=== PATIENT | female | born 1955 | race Caucasian/White ===

== ENCOUNTER 2019-06-10 18:27 | Emergency (ER) | payer OTHER ==
[~2019-06-10] VITALS: Ht 160 cm; Wt 100.0 kg
[2019-06-10] MEDS ORDERED: ASPI81 PO (18:32)
[2019-06-10] MEDS ORDERED: ATEN25TA PO (18:32)
[2019-06-10] MEDS ORDERED: HTN MED PO (18:32)
[2019-06-10] MEDS ORDERED: DYRE50 PO (18:53)
[2019-06-10] MEDS ORDERED: ACETAMINOPHEN 500 MG TABLET PO ONE (19:30)
[2019-06-10] MEDS ORDERED: PERTUSS(ACELL),DIPH,TET VAC/PF 0.5 ML VIAL IM ONE (19:30)
[2019-06-10 19:40] VITALS: BP 124/80
== END 2019-06-10 20:16 | disposition home or self-care (01) ==
LOC: EMS 18:28
DX: S61.421A Laceration with foreign body of right hand, initial encounter (principal); S61.216A Laceration without foreign body of right little finger without damage to nail, initial encounter; I10 Essential (primary) hypertension; Z90.710 Acquired absence of both cervix and uterus; Z98.890 Other specified postprocedural states; Z79.82 Long term (current) use of aspirin; Z79.899 Other long term (current) drug therapy; W25.XXXA Contact with sharp glass, initial encounter; Y93.89 Activity, other specified; Y92.89 Other specified places as the place of occurrence of the external cause; Y99.8 Other external cause status
CPT/HCPCS: 12001; 12041; 90471; 90715